=== PATIENT | female | born 1990 | race Caucasian/White ===

== ENCOUNTER 2017-11-03 06:01 | Inpatient (IN) | payer OTHER ==
[~2017-11-03] VITALS: Ht 162.6 cm; Wt 79.1 kg
[2017-11-03] MEDS ORDERED: OXYTOCIN 30U/ 0.9% NaCL 500ML 500 ML IV ONE (06:12)
[2017-11-03] MEDS ORDERED: D5%-LACTATED RINGERS 1,000 ML IV SCH (06:12)
[2017-11-03] MEDS ORDERED: OXYTOCIN 30U/ 0.9% NaCL 500ML 500 ML IV PRN (06:12)
[2017-11-03] MEDS ORDERED: AMPICILLIN 2 GM in SODIUM CHLORIDE 0.9% 100 ML IVPB STA (06:12)
[2017-11-03] MEDS ORDERED: NEWBORN KIT ONE (06:16)
[2017-11-03] MEDS ORDERED: MISOPROSTOL 200 MCG TABLET ONE (06:17)
[2017-11-03] MEDS ORDERED: OXYTOCIN 30U/ 0.9% NaCL 500ML 500 ML ONE (06:17)
[2017-11-03] MEDS ORDERED: FENTANYL PF 100 MCG/2ML IVPush PRN (06:30)
[2017-11-03] MEDS ORDERED: ONDANSETRON 2MG/ML, 2ML IVPush PRN (06:30)
[2017-11-03] MEDS ORDERED: FENTANYL PF 100 MCG/2ML IV PRN (06:30)
[2017-11-03 06:36] VITALS: BP 124/68
[2017-11-03 06:39] LABS: BASOPHILS # (AUTO) 0.03 x10^3/uL (0-0.1); BASOPHILS % (AUTO) 0 % (0-1); EOSINOPHILS # (AUTO) 0.07 x10^3/uL (0-0.4); EOSINOPHILS % (AUTO) 1 % (1-7); LYMPHOCYTES # (AUTO) 2.05 x10^3/uL (1-3.4); LYMPHOCYTES % (AUTO) 18 % (22-44); MD NO; MEAN CORPUSCULAR HEMOGLOBIN 32.7 pg (27.0-34.8); MEAN CORPUSCULAR VOLUME 93.5 fL (80-100); MEAN PLATELET VOLUME 8.4 fL (7.4-10.4); MONOCYTES # (AUTO) 0.86 x10^3/uL (0.2-0.8); MONOCYTES % (AUTO) 7 % (2-9); NEUTROPHILS # (AUTO) 8.55 x10^3/uL (1.8-6.8); NEUTROPHILS % (AUTO) 74 % (42-75); PLATELET COUNT 205 x10^3/uL (130-400); RED BLOOD COUNT 4.06 x10^6/uL (3.82-5.3)
[2017-11-03] MEDS: LACTATED RINGERS 1,000 ML IV SCH ×4 (09:15→18:01)
[2017-11-03] MEDS ORDERED: FENTANYL/BUPIV./NS/PF 250 ML EPIDCONT ONE (09:23)
[2017-11-03] MEDS ORDERED: LIDOCAINE/PF 1.5-EPI 1:200K, 30 ML ONE (09:27)
[2017-11-03] MEDS ORDERED: FENTANYL/BUPIV./NS/PF 250 ML EPIDCONT SCH (10:01)
[2017-11-03] MEDS ORDERED: NALOXONE 0.4 MG/ML, 1ML IVPush PRN (10:30)
[2017-11-03] MEDS ORDERED: EPHEDRINE 50 MG/ML, 1ML IVPush PRN (10:30)
[2017-11-03] MEDS ORDERED: LACTATED RINGERS 1,000 ML IVBOLUS PRN (10:30)
[2017-11-03] MEDS ORDERED: AMPICILLIN 1 GM in SODIUM CHLORIDE 0.9% 100 ML IVPB SCH (10:30)
[2017-11-03] MEDS: OXYTOCIN 30U/ 0.9% NaCL 500ML 500 ML IV SCH (15:29)
[2017-11-03] MEDS ORDERED: ONDANSETRON 2MG/ML, 2ML IV PRN (15:30)
[2017-11-03] MEDS ORDERED: OXYcodone/APAP 5/325MG TABLET PO PRN ×2 (15:30)
[2017-11-03] MEDS ORDERED: MISOPROSTOL 200 MCG TABLET PR PRN (15:30)
[2017-11-03 18:00] VITALS: BP 114/69
[2017-11-03] MEDS: DOCUSATE 100 MG CAPSULE PO PRN (19:20)
[2017-11-03] MEDS: IBUPROFEN 600 MG TABLET PO PRN (19:20)
[2017-11-03 20:00] VITALS: BP 114/73
[2017-11-03] MEDS ORDERED: RHOGAM FROM BLOOD BANK 1 NOTE EA IM/IV ONE (21:30)
[2017-11-03 23:31] LABS: MEAN CORPUSCULAR HEMOGLOBIN 33.4 pg (27.0-34.8); MEAN CORPUSCULAR HGB CONC 35.1 g/dL (32.4-35.8); MEAN CORPUSCULAR VOLUME 95.1 fL (80-100); PLATELET COUNT 191 x10^3/uL (130-400); RED BLOOD COUNT 3.43 x10^6/uL (3.82-5.3); RED CELL DISTRIBUTION WIDTH 14.7 % (9.6-15.2)
[2017-11-03 23:41] LABS: BASOPHILS # (AUTO) 0.02 x10^3/uL (0-0.1); BASOPHILS % (AUTO) 0 % (0-1); EOSINOPHILS # (AUTO) 0.02 x10^3/uL (0-0.4); EOSINOPHILS % (AUTO) 0 % (1-7); LYMPHOCYTES # (AUTO) 1.92 x10^3/uL (1-3.4); LYMPHOCYTES % (AUTO) 10 % (22-44); MD SCAN; MONOCYTES # (AUTO) 1.53 x10^3/uL (0.2-0.8); MONOCYTES % (AUTO) 8 % (2-9); NEUTROPHILS # (AUTO) 15.65 x10^3/uL (1.8-6.8); NEUTROPHILS % (AUTO) 82 % (42-75)
[2017-11-04 00:30] VITALS: BP 95/57
[2017-11-04] MEDS: IBUPROFEN 600 MG TABLET PO PRN ×3 (00:53→13:17)
[2017-11-04] MEDS: OXYTOCIN 30U/ 0.9% NaCL 500ML 500 ML IV SCH ×2 (01:29→01:37)
[2017-11-04] MEDS: LACTATED RINGERS 1,000 ML IV SCH ×2 (02:01→02:19)
[2017-11-04] MEDS: DOCUSATE 100 MG CAPSULE PO PRN (07:14)
[2017-11-04 07:20] VITALS: BP 118/71
[2017-11-04] MEDS ORDERED: PRENATAL VIT/IRON/FA 1 EACH TABLET PO SCH (09:00)
[2017-11-04] MEDS ORDERED: IBUP-1222 PO (10:25)
== END 2017-11-04 14:15 | disposition home or self-care (01) | DRG 775 ==
LOC: LDIP 06:01 → 2NW 17:48
PROVIDERS: ADMIT Obstetrics & Gynecology; ATTEND Obstetrics & Gynecology
PROC: 10E0XZZ Delivery of Products of Conception, External Approach (ICD-10-PCS; principal; 2017-11-03)
PROC: 3E033VJ Introduction of Other Hormone into Peripheral Vein, Percutaneous Approach (ICD-10-PCS; 2017-11-03)
PROC: 3E0R3BZ Introduction of Anesthetic Agent into Spinal Canal, Percutaneous Approach (ICD-10-PCS; 2017-11-03)
PROC: 00HU33Z Insertion of Infusion Device into Spinal Canal, Percutaneous Approach (ICD-10-PCS; 2017-11-03)
PROC: 10907ZC Drainage of Amniotic Fluid, Therapeutic from Products of Conception, Via Natural or Artificial Opening (ICD-10-PCS; 2017-11-03)
DX: O69.81X0 Labor and delivery complicated by cord around neck, without compression, not applicable or unspecified (principal); Z37.0 Single live birth; Z3A.39 39 weeks gestation of pregnancy; Z83.3 Family history of diabetes mellitus; Z88.1 Allergy status to other antibiotic agents; Z88.8 Allergy status to other drugs, medicaments and biological substances
CPT/HCPCS: 36415; 85025; 85461; 86850; 86900; J2790; J3490; J7120

== ENCOUNTER 2017-12-11 08:52 | Day surgery (SDC) | payer OTHER ==
[~2017-12-11] VITALS: Ht 162.6 cm; Wt 70.9 kg
[~2017-12-11 08:52] MED LIST: IBUP-1222 PO; PREN-3 PO
[2017-12-11] MEDS ORDERED: LACTATED RINGERS 1,000 ML IV SCH (09:22)
[2017-12-11 09:26] VITALS: BP 116/76
[2017-12-11] MEDS ORDERED: MISOPROSTOL 200 MCG TABLET ONE (10:06)
[2017-12-11] MEDS ORDERED: OXYTOCIN 10 UNITS/ML, 1ML ONE (10:06)
[2017-12-11] MEDS ORDERED: METHYLERGONOVINE 0.2 MG/ML IM ONE (10:06)
[2017-12-11] MEDS ORDERED: VASOPRESSIN 20 UNIT/ML, 1ML ONE (10:07)
[2017-12-11 10:50] LABS: HCG UR SG 1.012 (1.003-1.030)
[2017-12-11] MEDS ORDERED: FENTANYL PF 100 MCG/2ML ONE (11:01)
[2017-12-11] MEDS ORDERED: MIDAZOLAM 1 MG/ML, 2ML ONE (11:01)
[2017-12-11] MEDS ORDERED: KETOROLAC 30 MG/1 ML ONE (11:28)
[2017-12-11] MEDS ORDERED: PROPOFOL 10 MG/ML, 20ML ONE (11:28)
[2017-12-11] MEDS ORDERED: SUCCINYLCHOLINE 20 MG/ML, 10ML ONE (11:28)
[2017-12-11] MEDS ORDERED: ONDANSETRON 2MG/ML, 2ML IVPush PRN (12:00)
[2017-12-11] MEDS ORDERED: OXYcodone 5 MG/5 ML ORAL.SOL UDC PO PRN (12:00)
[2017-12-11] MEDS ORDERED: KETOROLAC 30 MG/1 ML IV PRN (12:00)
[2017-12-11] MEDS ORDERED: MEPERIDINE/PF 25MG/0.5ML IVPush PRN (12:00)
[2017-12-11] MEDS ORDERED: ALBUTEROL SULFATE 2.5 MG/3 ML NPPB PRN (12:00)
[2017-12-11] MEDS ORDERED: HYDROmorphone 1 MG/ML, 1ML IV PRN (12:00)
[2017-12-11] MEDS ORDERED: PROMETHAZINE 25 MG/ML, 1ML IV PRN (12:00)
[2017-12-11] MEDS ORDERED: FENTANYL PF 100 MCG/2ML IV PRN (12:00)
[2017-12-11] MEDS ORDERED: hydrALAzine 20 MG/ML, 1ML IV PRN (12:00)
[2017-12-11] MEDS ORDERED: METOCLOPRAMIDE 5 MG/ML, 2ML IV PRN (12:00)
[2017-12-11] MEDS ORDERED: LABETALOL 5MG/ML, 20ML IV PRN (12:00)
[2017-12-11] MEDS ORDERED: ACETAMINOPHEN 325 MG TABLET ONE (12:01)
[2017-12-11] MEDS ORDERED: IBUPROFEN 600 MG TABLET PO ONE (12:30)
== END 2017-12-11 13:05 ==
LOC: OUT 08:52
PROVIDERS: ATTEND Obstetrics & Gynecology
DX: O73.1 Retained portions of placenta and membranes, without hemorrhage (principal); Z88.8 Allergy status to other drugs, medicaments and biological substances
CPT/HCPCS: 59160; 81025; 88305; J0330; J1885; J2250; J2704; J7120; J3010; J2210; J2590